=== PATIENT | female | born 1970 | race African-American/Black ===

== ENCOUNTER 2020-03-16 09:22 | Emergency (ER) | payer MEDICARE, MEDICAID ==
[~2020-03-16] VITALS: Ht 172.7 cm; Wt 90.9 kg
[2020-03-16 09:23] VITALS: TEMP 97.8
[2020-03-16 09:48] LABS: COLLECTION METHOD CATHETER
[2020-03-16] MEDS ORDERED: AMBIEN 5MG TABLE5 MG PO (09:53)
[2020-03-16] MEDS ORDERED: SEROQUEL300 MG PO (09:53)
[2020-03-16] MEDS ORDERED: HALDOL DEC100 MG/1 M IM (09:54)
[2020-03-16] MEDS ORDERED: LEXAPRO 10MG10 MG PO (09:54)
[2020-03-16] MEDS ORDERED: HALDOL 5MG T5 MG/TAB PO ×3 (09:55→09:56)
[2020-03-16] MEDS ORDERED: STOOL SOFTENER100 M2 PO (09:57)
[2020-03-16] MEDS ORDERED: DOSTINEX0.5 MG/TAB (09:57)
[2020-03-16] MEDS ORDERED: TRILEPTAL 150M150 MG PO (09:57)
[2020-03-16] MEDS ORDERED: LIPITOR 10MG10 MG PO (09:58)
[2020-03-16] MEDS ORDERED: GLUCOPHAGE500 MG/TAB PO (09:58)
[2020-03-16] MEDS ORDERED: FERROUS SU325 MG/TAB PO (09:58)
[2020-03-16] MEDS ORDERED: PRAVACHOL10 MG PO (09:58)
[2020-03-16 09:59] LABS: MUCOUS Present /lpf; PH 5 (5-8); SQUAMOUS EPITHELIAL 0-2 /hpf; URINE APPEARANCE Clear; URINE BACTERIA None Seen /hpf; URINE BILIRUBIN Negative (NEGATIVE); URINE BLOOD Negative (NEGATIVE); URINE COLOR Yellow; URINE GLUCOSE Negative (NEGATIVE); URINE KETONE Negative (NEGATIVE); URINE LEUKOCYTE ESTERASE Negative (NEGATIVE); URINE NITRATE Negative (NEGATIVE); URINE PROTEIN(semi-quant) Negative (NEGATIVE); URINE RBC 0-2 /hpf; URINE UROBILINOGEN Negative (NEGATIVE)
[2020-03-16 10:20] LABS: TRICYCLIC ANTIDEPRESS URINE POSITIVE
[2020-03-16 11:03] LABS: BASO % 0.1 % (0.0-2.0); EOS % 0.4 % (0-4.0); GRAN # 3.6 (1.4-6.5); GRAN % 52.9 % (42.2-75.2); HEMOGLOBIN 11.9 g/dl (12.5-16.0); LYMPH # 2.7 (1.2-3.4); LYMPH % 39.7 % (20.0-51.0); MEAN CELL VOLUME 89 fl (80.0-100.0); MEAN CORPUSCULAR HEMOGLOBIN 29 pg (27.0-31.0); MEAN CORPUSCULAR HGB CONC 33 g/dl (33.0-37.0); MEAN PLATELET VOLUME 8.8 fl (7.4-10.4); MONO # 0.5 (0.1-0.6); MONO % 6.8 % (1.7-9.3); PLATELET COUNT 304 K/mm3 (130-400); RED BLOOD COUNT 4.05 M/mm3 (4.10-5.30); REDCELL DISTRIBUTION WIDTH-CV 17.4 % (11.5-14.5)
[2020-03-16 11:04] LABS: HEMATOCRIT 35.9 % (37.0-47.0)
[2020-03-16 11:11] LABS: ALANINE AMINOTRANSFERASE 32 U/L (4-34); ALBUMIN 4.3 gm/dL (3.5-5.0); ALKALINE PHOSPHATASE 82 U/L (50-136); ANION GAP 10 mmol/L (7-16); AST,SGOT 64 U/L (15-37); BLOOD UREA NITROGEN 11 mg/dL (7-17); CALCIUM 9.2 mg/dL (8.4-10.2); CARBON DIOXIDE 24 mmol/L (22-30); CHLORIDE 103 mmol/L (98-107); CREATININE, serum 0.53 (0.52-1.25); GLUCOSE 102 mg/dL (74-106); LIPASE 50 U/L (23-300); MAGNESIUM 1.7 mg/dL (1.6-2.3); SODIUM 137 mmol/L (137-145); TOTAL PROTEIN 8.1 gm/dL (6.4-8.2)
[2020-03-16 11:25] LABS: TROPONIN-I < 0.012 ng/mL (0.000-0.035)
[2020-03-16 11:41] LABS: THYROID STIMULATING HORMONE 0.257 uIU/mL (0.465-4.680)
[2020-03-16 12:55] VITALS: BP 123/82; PULSE 104
== END 2020-03-16 13:02 | disposition home or self-care (01) ==
LOC: COL.ER 09:22
PROVIDERS: Emergency Medicine
DX: F20.9 Schizophrenia, unspecified (principal); I10 Essential (primary) hypertension; E11.9 Type 2 diabetes mellitus without complications; E78.5 Hyperlipidemia, unspecified; Z88.2 Allergy status to sulfonamides; Z79.84 Long term (current) use of oral hypoglycemic drugs
CPT/HCPCS: J3411; J7030

== ENCOUNTER 2020-04-03 09:48 | Emergency (ER) | payer MEDICARE, MEDICAID ==
[~2020-04-03] VITALS: Ht 162.6 cm; Wt 69.1 kg
[~2020-04-03 09:48] MED LIST: AMBIEN 5MG TABLE5 MG PO; DOSTINEX0.5 MG/TAB; FERROUS SU325 MG/TAB PO; GLUCOPHAGE500 MG/TAB PO; HALDOL 5MG T5 MG/TAB PO; HALDOL DEC100 MG/1 M IM; LEXAPRO 10MG10 MG PO; LIPITOR 10MG10 MG PO; PRAVACHOL10 MG PO; SEROQUEL300 MG PO; STOOL SOFTENER100 M2 PO; TRILEPTAL 150M150 MG PO
[2020-04-03 09:55] VITALS: TEMP 97.9
[2020-04-03 10:30] LABS: COLLECTION METHOD CLEAN CATCH
[2020-04-03 10:34] LABS: BASO % 0.2 % (0.0-2.0); EOS % 0.7 % (0-4.0); GRAN # 2.5 (1.4-6.5); GRAN % 44.3 % (42.2-75.2); HEMATOCRIT 40.4 % (37.0-47.0); LYMPH # 2.8 (1.2-3.4); LYMPH % 49.3 % (20.0-51.0); MEAN CELL VOLUME 90 fl (80.0-100.0); MEAN CORPUSCULAR HEMOGLOBIN 29 pg (27.0-31.0); MEAN CORPUSCULAR HGB CONC 32 g/dl (33.0-37.0); MONO # 0.3 (0.1-0.6); MONO % 5.3 % (1.7-9.3); PLATELET COUNT 307 K/mm3 (130-400); REDCELL DISTRIBUTION WIDTH-CV 15.6 % (11.5-14.5)
[2020-04-03 10:40] LABS: MUCOUS Present /lpf; PH 5 (5-8); SQUAMOUS EPITHELIAL 0-2 /hpf; URINE APPEARANCE Hazy; URINE BACTERIA None Seen /hpf; URINE BILIRUBIN Negative (NEGATIVE); URINE BLOOD Negative (NEGATIVE); URINE COLOR Yellow; URINE GLUCOSE Negative (NEGATIVE); URINE KETONE Negative (NEGATIVE); URINE LEUKOCYTE ESTERASE Negative (NEGATIVE); URINE NITRATE Negative (NEGATIVE); URINE PROTEIN(semi-quant) Negative (NEGATIVE); URINE RBC None Seen /hpf; URINE UROBILINOGEN >=4.0 mg/dL (NEGATIVE)
[2020-04-03 10:54] LABS: ALBUMIN 4.7 gm/dL (3.5-5.0); BILIRUBIN,TOTAL 0.6 mg/dL (0.0-1.0); C-REACTIVE PROTEIN 0.7 mg/dL (0.0-0.9); CREATININE, serum 0.6 (0.52-1.25); POTASSIUM 3.6 mmol/L (3.4-5.0)
[2020-04-03] MEDS ORDERED: COGENTIN 1MG1 MG/TAB PO (11:56)
[2020-04-03] MEDS ORDERED: BIOTIN10000 MCG PO (11:58)
[2020-04-03] MEDS ORDERED: HALDOL 5MG T5 MG/TAB PO (12:01)
[2020-04-03 12:43] VITALS: BP 130/90; PULSE 72
[2020-04-03] MEDS ORDERED: PROLIX5TA PO (12:47)
== END 2020-04-03 12:45 | disposition home or self-care (01) ==
LOC: COL.ER 09:48
PROVIDERS: Family Medicine
DX: G24.9 Dystonia, unspecified (principal); T43.505A Adverse effect of unspecified antipsychotics and neuroleptics, initial encounter; F20.9 Schizophrenia, unspecified; E11.9 Type 2 diabetes mellitus without complications; Z79.84 Long term (current) use of oral hypoglycemic drugs
CPT/HCPCS: J1200; J1885; J7030

== ENCOUNTER 2020-04-08 10:12 | Emergency (ER) | payer MEDICARE, MEDICAID ==
[~2020-04-08] VITALS: Ht 170.2 cm; Wt 72.7 kg
[~2020-04-08 10:12] MED LIST changes: +BIOTIN10000 MCG PO; +COGENTIN 1MG1 MG/TAB PO; +PROLIX5TA PO
[2020-04-08 10:19] VITALS: TEMP 97.7
[2020-04-08 11:16] LABS: BASO % 0.3 % (0.0-2.0); EOS % 0.7 % (0-4.0); GRAN # 2.2 (1.4-6.5); GRAN % 36.7 % (42.2-75.2); HEMOGLOBIN 11.6 g/dl (12.5-16.0); LYMPH # 3.3 (1.2-3.4); LYMPH % 54.7 % (20.0-51.0); MEAN CELL VOLUME 88 fl (80.0-100.0); MEAN CORPUSCULAR HEMOGLOBIN 29 pg (27.0-31.0); MEAN CORPUSCULAR HGB CONC 33 g/dl (33.0-37.0); MONO # 0.4 (0.1-0.6); MONO % 7.3 % (1.7-9.3); PLATELET COUNT 307 K/mm3 (130-400); RED BLOOD COUNT 4.04 M/mm3 (4.10-5.30); REDCELL DISTRIBUTION WIDTH-CV 15.7 % (11.5-14.5)
[2020-04-08 11:25] LABS: ALANINE AMINOTRANSFERASE 12 U/L (4-34); ALBUMIN 4.2 gm/dL (3.5-5.0); ALKALINE PHOSPHATASE 81 U/L (50-136); ANION GAP 9 mmol/L (7-16); AST,SGOT 17 U/L (15-37); BILIRUBIN,TOTAL 0.4 mg/dL (0.0-1.0); BLOOD UREA NITROGEN 6 mg/dL (7-17); CALCIUM 9.7 mg/dL (8.4-10.2); CARBON DIOXIDE 27 mmol/L (22-30); CHLORIDE 104 mmol/L (98-107); CREATININE, serum 0.55 (0.52-1.25); GLUCOSE 95 mg/dL (74-106); POTASSIUM 3.7 mmol/L (3.4-5.0); SODIUM 139 mmol/L (137-145); TOTAL PROTEIN 7.9 gm/dL (6.4-8.2)
[2020-04-08 11:26] LABS: C-REACTIVE PROTEIN < 0.5 mg/dL (0.0-0.9)
[2020-04-08 11:29] LABS: HEMATOCRIT 35.6 % (37.0-47.0)
[2020-04-08 13:09] LABS: COLLECTION METHOD CLEAN CATCH
[2020-04-08 13:23] LABS: MUCOUS Present /lpf; PH 5 (5-8); URINE APPEARANCE Cloudy; URINE BACTERIA Rare /hpf; URINE BILIRUBIN Negative (NEGATIVE); URINE BLOOD Negative (NEGATIVE); URINE COLOR Yellow; URINE GLUCOSE Negative (NEGATIVE); URINE KETONE Negative (NEGATIVE); URINE LEUKOCYTE ESTERASE Trace (NEGATIVE); URINE NITRATE Negative (NEGATIVE); URINE PROTEIN(semi-quant) 1+ (NEGATIVE); URINE RBC 0-2 /hpf; URINE UROBILINOGEN Negative (NEGATIVE)
[2020-04-08] MEDS ORDERED: MACROBID 1100 MG/CAP PO (13:35)
[2020-04-08 13:50] VITALS: BP 106/72; PULSE 84
== END 2020-04-08 13:50 | disposition home or self-care (01) ==
LOC: COL.ER 10:12
PROVIDERS: Nurse Practitioner Primary Care
DX: N39.0 Urinary tract infection, site not specified (principal); F20.9 Schizophrenia, unspecified; F31.9 Bipolar disorder, unspecified; E78.5 Hyperlipidemia, unspecified; F17.210 Nicotine dependence, cigarettes, uncomplicated; Z79.84 Long term (current) use of oral hypoglycemic drugs
CPT/HCPCS: J1200; J1885; J7030

== ENCOUNTER → 2020-04-18 | Outpatient (CLI) | payer MEDICARE, MEDICAID ==
[~2020-04-18] MED LIST changes: +MACROBID 1100 MG/CAP PO
== END ==
LOC: COL.LAB 16:46
DX: F29 Unspecified psychosis not due to a substance or known physiological condition (principal)

== ENCOUNTER → 2020-04-23 | Outpatient (CLI) | payer MEDICARE, MEDICAID ==
[2020-04-23 11:17] LABS: BASO % 0.4 % (0.0-2.0); EOS # 0.1 (0.0-0.7); EOS % 1.5 % (0-4.0); GRAN # 1.4 (1.4-6.5); GRAN % 26.8 % (42.2-75.2); HEMOGLOBIN 13.1 g/dl (12.5-16.0); LYMPH # 3.6 (1.2-3.4); LYMPH % 66.6 % (20.0-51.0); MEAN CELL VOLUME 89 fl (80.0-100.0); MEAN CORPUSCULAR HEMOGLOBIN 29 pg (27.0-31.0); MEAN CORPUSCULAR HGB CONC 33 g/dl (33.0-37.0); MEAN PLATELET VOLUME 10.3 fl (7.4-10.4); MONO # 0.3 (0.1-0.6); MONO % 4.7 % (1.7-9.3); PLATELET COUNT 238 K/mm3 (130-400); RED BLOOD COUNT 4.52 M/mm3 (4.10-5.30); REDCELL DISTRIBUTION WIDTH-CV 15.3 % (11.5-14.5)
[2020-04-23 11:31] LABS: ALBUMIN 4.5 gm/dL (3.5-5.0); BILIRUBIN,TOTAL 0.4 mg/dL (0.0-1.0); CALCIUM 9.8 mg/dL (8.4-10.2); CREATININE, serum 0.6 (0.52-1.25); MAGNESIUM 1.9 mg/dL (1.6-2.3); POTASSIUM 4.2 mmol/L (3.4-5.0); TOTAL PROTEIN 8.2 gm/dL (6.4-8.2)
[2020-04-23 11:35] LABS: TRICYCLIC ANTIDEPRESS URINE NEGATIVE
[2020-04-23 11:59] LABS: THYROID STIMULATING HORMONE 1.47 uIU/mL (0.465-4.680)
== END ==
LOC: COL.LAB 08:00
PROVIDERS: Nurse Practitioner
DX: F25.0 Schizoaffective disorder, bipolar type (principal); E78.5 Hyperlipidemia, unspecified; E22.1 Hyperprolactinemia; F29 Unspecified psychosis not due to a substance or known physiological condition; G24.9 Dystonia, unspecified; E11.9 Type 2 diabetes mellitus without complications; G21.0 Malignant neuroleptic syndrome; Z79.899 Other long term (current) drug therapy

== ENCOUNTER 2021-04-29 14:55 | Emergency (ER) | payer MEDICARE, MEDICAID ==
[~2021-04-29] VITALS: Ht 172.7 cm; Wt 61.4 kg
--- NOTE | 2021-04-29 16:50 | NUR ---
acetone recovery worker met with patient's daughter, Elizabeth Hawkins, as daughter verbalized frustration that she cannot access patient's bottle caser at [facility] office in [place], [place]. Worker contacted [facility] and conveyed daughter's frustration and they will collaborate with the [place] office.
[2021-04-29 17:21] LABS: BASO % 0.6 % (0.0-2.0); EOS % 0.3 % (0-4.0); GRAN # 1.2 (1.4-6.5); GRAN % 33.8 % (42.2-75.2); HEMATOCRIT 37.3 % (37.0-47.0); HEMOGLOBIN 12.4 g/dl (12.5-16.0); LYMPH % 58.4 % (20.0-51.0); MEAN CELL VOLUME 85 fl (80.0-100.0); MEAN CORPUSCULAR HEMOGLOBIN 28 pg (27.0-31.0); MEAN CORPUSCULAR HGB CONC 33 g/dl (33.0-37.0); MEAN PLATELET VOLUME 10.3 fl (7.4-10.4); MONO # 0.2 (0.1-0.6); MONO % 6.9 % (1.7-9.3); PLATELET COUNT 230 K/mm3 (130-400); RED BLOOD COUNT 4.37 M/mm3 (4.10-5.30); REDCELL DISTRIBUTION WIDTH-CV 14.6 % (11.5-14.5)
[2021-04-29 17:24] LABS: ALANINE AMINOTRANSFERASE 16 U/L (4-34); ALBUMIN 4.7 gm/dL (3.5-5.0); ALKALINE PHOSPHATASE 102 U/L (50-136); ANION GAP 18 mmol/L (7-16); AST,SGOT 36 U/L (15-37); BILIRUBIN,TOTAL 1.8 mg/dL (0.0-1.0); BLOOD UREA NITROGEN 16 mg/dL (7-17); CARBON DIOXIDE 15 mmol/L (22-30); CHLORIDE 103 mmol/L (98-107); CREATININE, serum 0.64 (0.52-1.25); GLUCOSE 85 mg/dL (74-106); POTASSIUM 4.5 mmol/L (3.4-5.0); SODIUM 136 mmol/L (137-145); TOTAL PROTEIN 8.2 gm/dL (6.4-8.2)
[2021-04-29 17:28] LABS: ACETAMINOPHEN < 10 ug/mL (10-30); ALCOHOL(ethanol),MEDICAL < 10 mg/dL; SALICYLATE < 1.0 mg/dL
[2021-04-29 22:13] LABS: CALCIUM 8.6 mg/dL (8.4-10.2); CREATININE, serum 0.57 (0.52-1.25); POTASSIUM 4.1 mmol/L (3.4-5.0)
[2021-04-30 02:32] LABS: COLLECTION METHOD CLEAN CATCH
[2021-04-30 02:41] LABS: MUCOUS Present /lpf; PH 5 (5-8); URINE APPEARANCE Cloudy; URINE BACTERIA Rare /hpf; URINE BILIRUBIN Negative (NEGATIVE); URINE BLOOD Negative (NEGATIVE); URINE COLOR Yellow; URINE GLUCOSE Negative (NEGATIVE); URINE KETONE 2+ (NEGATIVE); URINE LEUKOCYTE ESTERASE Trace (NEGATIVE); URINE NITRATE Negative (NEGATIVE); URINE PROTEIN(semi-quant) Negative (NEGATIVE); URINE RBC 0-2 /hpf; URINE UROBILINOGEN Negative (NEGATIVE)
[2021-04-30 02:48] LABS: TRICYCLIC ANTIDEPRESS URINE NEGATIVE
[2021-04-30 18:41] LABS: HEMOGLOBIN 11.4 g/dl (12.5-16.0); MEAN CELL VOLUME 85 fl (80.0-100.0); MEAN CORPUSCULAR HEMOGLOBIN 28 pg (27.0-31.0); MEAN CORPUSCULAR HGB CONC 33 g/dl (33.0-37.0); MEAN PLATELET VOLUME 9.9 fl (7.4-10.4); PLATELET COUNT 253 K/mm3 (130-400); RED BLOOD COUNT 4.03 M/mm3 (4.10-5.30); REDCELL DISTRIBUTION WIDTH-CV 14.8 % (11.5-14.5)
[2021-04-30 18:47] LABS: BILIRUBIN,TOTAL 1.6 mg/dL (0.0-1.0); CALCIUM 9.3 mg/dL (8.4-10.2); CREATININE, serum 0.49 (0.52-1.25); POTASSIUM 3.5 mmol/L (3.4-5.0); TOTAL PROTEIN 7.1 gm/dL (6.4-8.2)
[2021-04-30 18:55] LABS: HEMATOCRIT 34.2 % (37.0-47.0)
[2021-04-30 19:09] LABS: EOSINOPHIL 1 % (0-4); LYMPHOCYTE 70 % (20.0-51.0); NEUTROPHILS 26 % (42.0-75.2); PLATELET ESTIMATE NORMAL (NORMAL)
[2021-05-03 06:31] VITALS: TEMP 97.4
[2021-05-05 06:59] VITALS: BP 130/68; PULSE 80
== END 2021-05-05 15:30 ==
LOC: COL.ER 14:55
PROVIDERS: Emergency Medicine; Nurse Practitioner Family; Personal Emergency Response Attendant
DX: F20.9 Schizophrenia, unspecified (principal); E11.9 Type 2 diabetes mellitus without complications; Z20.822 Contact with and (suspected) exposure to COVID-19; Z79.899 Other long term (current) drug therapy
CPT/HCPCS: 99223; J1630; J1956; J2060; J3480; J7030

== ENCOUNTER 2022-01-20 11:19 | Emergency (ER) | payer MEDICARE, MEDICAID ==
[2022-01-20 12:18] LABS: BASO % 0.3 % (0.0-2.0); EOS # 0.1 K/mm3 (0.0-0.7); EOS % 1.5 % (0.0-4.0); GRAN # 2.3 K/mm3 (1.4-6.5); GRAN % 34.5 % (42.2-75.2); HEMATOCRIT 34.1 % (37.0-47.0); LYMPH # 3.5 K/mm3 (1.2-3.4); LYMPH % 53.3 % (20.0-51.0); MEAN CELL VOLUME 89 fl (80.0-100.0); MEAN CORPUSCULAR HEMOGLOBIN 29 pg (27-31); MEAN CORPUSCULAR HGB CONC 32 g/dl (33.0-37.0); MEAN PLATELET VOLUME 8.8 fl (7.4-10.4); MONO # 0.7 K/mm3 (0.1-0.6); MONO % 10.2 % (1.7-9.3); PLATELET COUNT 351 K/mm3 (130-400); RED BLOOD COUNT 3.84 M/mm3 (4.10-5.30); REDCELL DISTRIBUTION WIDTH-CV 15.6 % (11.5-14.5)
[2022-01-20 12:41] LABS: ALANINE AMINOTRANSFERASE 20 U/L (0-55); ALBUMIN 4.1 gm/dL (3.5-5.0); ALKALINE PHOSPHATASE 82 U/L (40-150); ANION GAP 9 mmol/L (7-16); AST,SGOT 24 U/L (5-34); BILIRUBIN,TOTAL 0.7 mg/dL (0.2-1.2); BLOOD UREA NITROGEN 16 mg/dL (10-20); CALCIUM 9.5 mg/dL (8.4-10.2); CARBON DIOXIDE 25 mmol/L (22-29); CHLORIDE 109 mmol/L (98-107); CREATININE, serum 0.74 mg/dL (0.57-1.11); GLUCOSE 97 mg/dL (70-99); POTASSIUM 3.6 mmol/L (3.5-4.5); SODIUM 143 mmol/L (136-145); TOTAL PROTEIN 7.4 gm/dL (6.2-8.1)
[2022-01-20 12:42] LABS: ACETAMINOPHEN < 1.0 ug/mL (10-30); ALCOHOL(ethanol),MEDICAL < 10 mg/dL (0-10); SALICYLATE < 5.0 mg/dL (15.0-30.0)
[2022-01-20 14:27] LABS: COLLECTION METHOD CLEAN CATCH
[2022-01-20 14:34] LABS: MUCOUS Present (NOT PRESENT); PH 6 (5-8); SQUAMOUS EPITHELIAL None Seen /hpf (0-10); URINE APPEARANCE Clear (CLEAR/HAZY); URINE BACTERIA None Seen /hpf (NONE SEEN); URINE BILIRUBIN Negative (NEGATIVE); URINE BLOOD Negative (NEGATIVE); URINE COLOR Colorless (YELLOW); URINE GLUCOSE Negative (NEGATIVE); URINE KETONE Negative (NEGATIVE); URINE LEUKOCYTE ESTERASE Negative (NEGATIVE); URINE NITRATE Negative (NEGATIVE); URINE PROTEIN(semi-quant) Negative (NEGATIVE); URINE RBC 0-2 /hpf (0-2); URINE UROBILINOGEN Negative (NEGATIVE)
[2022-01-20 15:00] LABS: TRICYCLIC ANTIDEPRESS URINE NEGATIVE
[2022-01-22 11:14] VITALS: TEMP 97.4
[2022-01-22 13:34] VITALS: BP 169/61; PULSE 95
--- NOTE | 2022-01-25 13:07 | NUR ---
[employer] worker contacted the patients daughter Abigail to check in on how she was doing. She states that at the moment she is ok but is feeling stressed with the situation surrounding her mother and is about to start finals at school. She reports that she has a good support system through sorority sisters and they have been there to listen when she needs them to. She has been in therapy since the beginning of the year but does not wish to get on medication at this time. She states "after seeing when my mom has gone through, i just don't feel comfortable taking medications". Encouraged her to keep talking with her support group, reach out to the schools counseling services if needed and or contact us here at the hospital if she is needing any supportative services.
== END 2022-01-22 13:45 ==
LOC: COL.ER 11:19
PROVIDERS: Family Medicine
DX: F23 Brief psychotic disorder (principal); Z20.822 Contact with and (suspected) exposure to COVID-19
CPT/HCPCS: J1200; J1630; J2060